=== PATIENT | male | born 1955 | race Caucasian/White ===

== ENCOUNTER 2018-07-04 19:42 | Emergency (ER) | payer OTHER ==
[~2018-07-04] VITALS: Ht 177.8 cm; Wt 97.5 kg
[2018-07-04] MEDS ORDERED: IBUPROFEN 600 MG TABLET ONE (20:41)
[2018-07-04] MEDS ORDERED: CYCLOBENZAPRINE HCL 10 MG TABLET ONE (20:41)
[2018-07-04] MEDS ORDERED: CYCLOBENZAPRINE HCL 10 MG TABLET PO ONE (20:45)
[2018-07-04] MEDS ORDERED: IBUPROFEN 600 MG TABLET PO ONE (20:45)
--- NOTE | 2018-07-04 21:33 | NUR ---
Patient discharged to home in stable conditon. Written and verbal after care instructions given. Patient verbalizes understanding of instructions. Pt ambulated out of ER in steady gait accompanied by . All belongings with pt. VSS. NAD noted.
[2018-07-04 21:34] VITALS: BP 154/88
== END 2018-07-04 21:35 | disposition home or self-care (01) ==
LOC: ER 19:44
DX: S16.1XXA Strain of muscle, fascia and tendon at neck level, initial encounter (principal); S29.012A Strain of muscle and tendon of back wall of thorax, initial encounter; S20.212A Contusion of left front wall of thorax, initial encounter; V49.60XA Unspecified car occupant injured in collision with unspecified motor vehicles in traffic accident, initial encounter; Y93.89 Activity, other specified; Y92.410 Unspecified street and highway as the place of occurrence of the external cause; Y99.8 Other external cause status
CPT/HCPCS: 71101; 99284; A4663